=== PATIENT | female | born 1960 | race Caucasian/White ===

== ENCOUNTER 2023-02-28 14:36 | Emergency (ER) | payer OTHER ==
[2023-02-28] MEDS ORDERED: ONDANSETRON ODT 4 MG TAB PO STA (14:49)
--- NOTE | 2023-02-28 14:53 | ED ---
General Adult HPI - General Source: patient, family, RN notes reviewed Mode of arrival: ambulatory Limitations: no limitations <David Zuñiga - Last Filed: 02/28/23 17:13> <Wayne Tan - Last Filed: 02/28/23 17:57> - General Stated complaint: Lt arm injury Time Seen by Provider: 02/28/23 14:39 - History of Present Illness Initial comments: 62-year-old female presents emergency Department chief complaint left wrist injury. Patient states she is milligrams was playing with her grandson when she tripped and fell she states that there is obvious fracture left wrist. Patient states she's not felt well since then. She states she is very nauseated. Patient is right-hand dominant patient offers no complaints. (David Zuñiga) - Related Data Previous Rx's Medication Instructions Recorded Ondansetron Odt [Zofran Odt] 4 mg PO Q8HR PRN #10 tab 02/28/23 Allergies Allergy/AdvReac Type Severity Reaction Status Date / Time Sulfa (Sulfonamide Allergy Rash/Hives Verified 02/28/23 14:55 Antibiotics) Review of Systems ROS Other: All systems not noted in ROS Statement are negative. <David Zuñiga - Last Filed: 02/28/23 17:13> ROS Other: All systems not noted in ROS Statement are negative. <Wayne Tan - Last Filed: 02/28/23 17:57> ROS Statement: Those systems with pertinent positive or pertinent negative responses have been documented in the HPI. General Exam Limitations: no limitations General appearance: alert, in no apparent distress Head exam: Present: atraumatic, normocephalic, normal inspection Respiratory exam: Present: normal lung sounds bilaterally. Absent: respiratory distress, wheezes, rales, rhonchi, stridor Cardiovascular Exam: Present: regular rate, normal rhythm, normal heart sounds. Absent: systolic murmur, diastolic murmur, rubs, gallop, clicks Extremities exam: Present: other (Left wrist tenderness with palpation, swelling, mild deformity noted neurovascular intact) Neurological exam: Present: alert <David Zuñiga - Last Filed: 02/28/23 17:13> Course Vital Signs 02/28/23 02/28/23 02/28/23 14:52 15:25 16:15 Temperature 98 F Pulse Rate 59 L 64 Respiratory 16 18 18 Rate Blood Pressure 102/66 131/84 O2 Sat by Pulse 98 100 Oximetry 02/28/23 02/28/23 02/28/23 16:53 16:55 17:00 Temperature Pulse Rate 68 68 70 Respiratory 18 18 18 Rate Blood Pressure 120/81 126/71 135/75 O2 Sat by Pulse 98 97 97 Oximetry Procedures - Orthopedic Fracture Reduction Fracture #1 Consent Obtained: written consent Side: left Fracture Reduction Location: radius, ulna Analgesia: procedural sedation Technique: direct manipulation, traction/counter-traction Post Reduction X-rays Demonstrate: acceptable reduction Post-Reduction Neuro Exam: intact Post-Reduction Vascular Exam: intact Splint Applied: Yes Patient Tolerated Procedure: well, no complications - Orthopedic Splinting/Casting Injury #1 Side: left Upper Extremity Injury Location: short arm, wrist Upper Extremity Immobilizer: sling/shoulder immobilizer, sugar tong splint, synthetic pre-padded splint <David Zuñiga - Last Filed: 02/28/23 17:13> - Procedural Sedation *Procedural Sedation Start Time: 16:53 *Procedural Sedation Stop Time: 17:15 *Indications: fracture/dislocation reduction *Previous Adverse Reaction to Anesthesia/Sedation?: No * Testing Complete?: No Reason Test Not Complete:: Age > 60 *ASA Class: I *Mallampati Airway Score: 2 *Time of Last PO Intake: 13:30 Preparation: oyster unloader applied, pulse oximeter, capnometry used, supplemental O2 applied, suction/airway equipment at bedside, IV secured IV Propofol Dose (mgs): 70 Complications: none Patient Tolerated Procedure: well, no complications <Wayne Tan - Last Filed: 02/28/23 17:57> - Procedural Sedation Presedation Evaluation: Left upper extremity- NVI; cardiovascular- RRR; pulmonary- clear to auscultation bilaterally (Wayne Tan) Medical Decision Making <David Zuñiga - Last Filed: 02/28/23 17:13> - Medical Decision Making Was pt. sent in by a medical professional or institution (, PA, SHUTTLE FINAL INSPECTOR, urgent care, hospital, or longterm...) When possible be specific @ -No Did you speak to anyone other than the patient for history (EMS, parent, family, police, friend...)? What history was obtained from this source @ -No Did you review nursing and triage notes (agree or disagree)? Why? @ -I reviewed and agree with nursing and triage notes Were old charts reviewed (outside hosp., previous admission, EMS record, old EKG, old radiological studies, urgent care reports/EKG's, longterm records)? Report findings @ -No old charts were reviewed Differential Diagnosis (chest pain, altered mental status, abdominal pain women, abdominal pain men, vaginal bleeding, weakness, fever, dyspnea, syncope, headache, dizziness, GI bleed, back pain, seizure, CVA, palpatations, mental health, musculoskeletal)? @ -Left arm sprain, arm fracture, dislocation EKG interpreted by me (3pts min.). @ -None X-rays interpreted by me (1pt min.). @ -X-ray shows displaced radius and all are fracture X-ray left wrist postreduction shows improved alignment CT interpreted by me (1pt min.). @ -None done U/S interpreted by me (1pt. min.). @ -None done What testing was considered but not performed or refused? (CT, X-rays, U/S, labs)? Why? @ -None What meds were considered but not given or refused? Why? @ -None Did you discuss the management of the patient with other professionals (professionals i.e. , PA, SHUTTLE FINAL INSPECTOR, lab, RT, psych nurse, director social welfare, electrical appliance repairer, teacher, fare enforcement officer, bilingual case manager)? Give summary @ -No Was smoking cessation discussed for >3mins.? @ -No Was critical care preformed (if so, how long)? @ -No Were there social determinants of health that impacted care today? How? (Homelessness, low income, unemployed, alcoholism, drug addiction, transportation, low edu. Level, literacy, decrease access to med. care, alf, rehab)? @ -No Was there de-escalation of care discussed even if they declined (Discuss DNR or withdrawal of care, Hospice)? DNR status @ -No What co-morbidities impacted this encounter? (DM, HTN, Smoking, COPD, CAD, Cancer, CVA, ARF, Chemo, Hep., AIDS, mental health diagnosis, sleep apnea, morbid obesity)? @ -None Was patient admitted / discharged? Hospital course, mention meds given and route, prescriptions, significant lab abnormalities, going to OR and other pertinent info. @ -Discharge patient was splinted, after fasciculation and reduction of displaced fracture patient will follow-up with on-call orthopedics and return for any worsening symptoms. Undiagnosed new problem with uncertain prognosis? @ -No Drug Therapy requiring intensive monitoring for toxicity (Heparin, Nitro, Insulin, Cardizem)? @ -No Were any procedures done? @ -No Diagnosis/symptom? @ -Left distal radius and ulna fracture Acute, or Chronic, or Acute on Chronic? @ -Acute Uncomplicated (without systemic symptoms) or Complicated (systemic symptoms)? @ -Uncomplicated Side effects of treatment? @ -No Exacerbation, Progression, or Severe Exacerbation? @ -No Poses a threat to life or bodily function? How? (Chest pain, [place], [place], pneumonia, PE, COPD, DKA, ARF, appy, cholecystitis, CVA, Diverticulitis, Homicidal, Suicidal, threat to staff... and all critical care pts) @ -No (David Zuñiga) Disposition Is patient prescribed a controlled substance at d/c from ED?: No Time of Disposition: 17:13 <David Zuñiga - Last Filed: 02/28/23 17:13> <Wayne Tan - Last Filed: 02/28/23 17:57> Clinical Impression: Closed fracture of left distal radius and ulna Disposition: HOME SELF-CARE Condition: Stable Instructions (If sedation given, give patient instructions): Arm Fracture in Adults (ED), Moderate Sedation (ED) Additional Instructions: Please return to the Emergency Department if symptoms worsen or any other concerns. Prescriptions: Ondansetron Odt [Zofran Odt] 4 mg PO Q8HR PRN #10 tab PRN Reason: Nausea Referrals: Nonstaff,Physician [Primary Care Provider] - 1-2 days Best Mathew MD [STAFF PHYSICIAN] - 1-2 days
[2023-02-28 15:28] VITALS: RESP 18
[2023-02-28] MEDS ORDERED: SODIUM CHLORIDE 0.9% 500 ML 500 ML IV STA (15:28)
[2023-02-28] MEDS ORDERED: PROPOFOL 10 MG/ML 20 ML VIAL IV STA (15:28)
[2023-02-28] MEDS ORDERED: HYDROmorphone 0.5 MG/0.5 ML SYRINGE IVP STA (15:32)
[2023-02-28] MEDS ORDERED: ONDANSETRON 4 MG/2 ML VIAL IVP STA (15:32)
--- NOTE | 2023-02-28 15:41 | XR ---
EXAMINATION TYPE: XR wrist limited LT DATE OF EXAM: 02/28/2023 CLINICAL HISTORY: pain TECHNIQUE: Frontal, lateral and oblique images of the left wrist are obtained. COMPARISON: None. FINDINGS: Comminuted distal radial fracture with distal fracture component is displaced ventrally alt chelsi a true lateral was not submitted. There is intra-articular extension. There is also fracture of the ulnar styloid process. Extensive soft tissue deformity. No additional fractures seen. IMPRESSION: As above
[2023-02-28] MEDS ORDERED: ACET/COD 300 MG/30 MG STARTER PACK 6 TAB BTL PO STA (17:15)
--- NOTE | 2023-02-28 18:06 | XR ---
EXAMINATION TYPE: XR wrist limited LT DATE OF EXAM: 02/28/2023 5:06 PM INDICATION: Patient age:Female; 62 years old; Reason for study: post reduction; COMPARISON: 02/28/2023. TECHNIQUE: left wrist was examined in the. Frontal, navicular, lateral, and oblique. FINDINGS: Improved anatomic alignment of fractures of the distal radius with intra-articular extensio n and the ulnar styloid process.. No new fractures. Cast material is in place and limits evaluation. IMPRESSION: Post reduction changes with improved anatomic alignment.
[2023-02-28] MEDS ORDERED: PROCHLORPERAZINE INJ 10 MG/2 ML VIAL IVP STA (18:12)
[2023-02-28 19:43] VITALS: BP 127/79; PULSE 68; TEMP 98.1
== END 2023-02-28 18:27 | disposition home or self-care (01) ==
LOC: EC 14:36
DX: S52.502D Unspecified fracture of the lower end of left radius, subsequent encounter for closed fracture with routine healing (principal); S52.692D Other fracture of lower end of left ulna, subsequent encounter for closed fracture with routine healing; Z88.2 Allergy status to sulfonamides; W01.0XXA Fall on same level from slipping, tripping and stumbling without subsequent striking against object, initial encounter
CPT/HCPCS: 73100; 99283; 96374; 96375 ×2; 96361; 25565; 25605; 99152; J0780; J2405; J2704; J1170